=== PATIENT | female | born 1950 | race Caucasian/White ===

== ENCOUNTER 2018-02-28 13:00 | Emergency (ER) | payer MEDICARE, BC ==
[2018-02-28 13:09] VITALS: BP 129/76
--- NOTE | 2018-02-28 13:30 | ED Physician Documentation ---
History of Present Illness - Stated complaint Stated Complaint: POST SURGERY COMPLICATIONS - Chief complaint Chief Complaint: General - History obtained from History obtained from: Patient - History of Present Illness Timing: Today Pain level max: 0 Pain level now: 0 Improved by: nothing Worsened by: nothing - Additonal information Additional information: R sided femoral angiogram site bleeding today. Had angiogram 5 days ago in [place] and started bleeding today. Angio was for pulsatile tinnitus. 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 L groin angio site no bleeding or infection.) - Neuro Neuro: Alert and oriented X 3 Results - Vitals Vitals: Vital Signs - 24 hr 02/28/18 13:04 Temperature 36.5 C Heart Rate 72 Respiratory 16 Rate Blood Pressure 129/76 O2 Saturation 100 Oxygen O2 Source Room air PD MEDICAL DECISION MAKING - ED course Complexity details: re-evaluated patient (re-evaluated multiple times with no further bleeding. ), considered differential, d/w patient ED course: Patient is a 67-year-old female with bleeding from the angiogram site in her right groin. Pressure was applied and the bleeding resolved. Monitored in the emergency department with no further bleeding. We will discharge her home and have her follow-up with her doctor. No evidence of pseudoaneurysm, infection, dissection. Patient counseled regarding signs and symptoms for which I believe and urgent re-evaluation would be necessary. Patient with good understanding of and agreement to plan and is comfortable going home at this time This document was made in part using voice recognition software. While efforts are made to proofread this document, sound alike and grammatical errors may occur. Departure - Departure Disposition: 01 Home, Self Care Clinical Impression: Post-operative hemorrhage Qualifiers: Surgical complication system/body Area: skin Procedure type: non-dermatologic Qualified Code(s): L76.22 - Postprocedural hemorrhage of skin and subcutaneous tissue following other procedure Condition: Good Instructions: ED Wound Check Post Op Bleeding Follow-Up: your,doctor as scheduled. [Other] Comments: Relax today. If bleeding recurrs, apply pressure for 10 minutes and recheck. Return if you worsen or if the bleeding doesn't stop with pressure.
== END 2018-02-28 15:13 | disposition home or self-care (01) ==
LOC: ED 13:00
DX: L76.22 Postprocedural hemorrhage of skin and subcutaneous tissue following other procedure (principal)
CPT/HCPCS: 99281; 99283

== ENCOUNTER 2019-07-01 08:02 | Outpatient (CLI) | payer MEDICARE, BC | END 2019-07-01 08:03 | disposition short-term general hospital (02) | LOC: EMS 08:02 | PROVIDERS: ATTEND Surgery | DX: R55 Syncope and collapse (principal); S51.012A Laceration without foreign body of left elbow, initial encounter; W01.0XXA Fall on same level from slipping, tripping and stumbling without subsequent striking against object, initial encounter; Y92.814 Boat as the place of occurrence of the external cause ==